=== PATIENT | female | born 1995 | race Two or more races ===

== ENCOUNTER 2020-03-10 13:53 | Inpatient (IN) ==
[2020-03-10] MEDS ORDERED: ONDANSETRON INJ 2 MG/ML 2 ML VIAL IV STA (14:20)
[2020-03-10] MEDS ORDERED: KETOROLAC TROMETHAMINE 15 MG/ML VIAL IV STA (14:20)
[2020-03-10] MEDS ORDERED: SODIUM CHLORIDE 0.9% 1000ML 1,000 ML IV ONE (14:20)
--- NOTE | 2020-03-10 14:24 | Emergency Department Note ---
Impression & Plan Right sided abdominal pain, Acute pyelonephritis, Fever, Leukocytosis ED Provider Note NAME: DELIA GARDINER AGE: 25 SEX: F : 1995 ARRIVES VIA: Ambulance INFORMANT: [Patient] ED PROVIDER(S): [Sav Galvez MD] CHIEF COMPLAINT: Abdominal pain HISTORY OF PRESENT ILLNESS: The patient is a 25-year-old female who presents with about 5 days of right- sided abdominal pain. The patient states that she has had 4 days of fever. She has vomited a few times, no diarrhea. The pain is mild in severity, it is constant and nonradiating. It is an ache. Nothing makes the pain better or worse. The patient has not had urinary complaints, vaginal discharge, she has not suffered trauma. She has not had any cough or congestion or shortness of breath. The patient did have outpatient coronavirus testing done as per [facility], the result is pending. She presents today because her pain is worsening. She has had no known coronavirus exposures. REVIEW OF SYSTEMS: See HPI for pertinent positives and negatives. A total of ten systems were reviewed and were otherwise negative. PMHx/PSHx: See Below SOCIAL HISTORY: See Below. PHYSICAL EXAM: GENERAL: Patient is in no acute distress. HEENT: No acute trauma, normocephalic atraumatic, mucous membranes moist, no nasal congestion, no scleral icterus. NECK: No stridor, no adenopathy, no meningismus, trachea is midline. LUNGS: Clear to auscultation bilaterally, no wheeze, no rhonchi, breath sounds equal. HEART: Mildly tachycardic. 2/6 systolic murmur. Regular rhythm. ABDOMEN: Soft, moderately tender in the right upper quadrant and mid right abdomen, bowel sounds positive, no hernias, no peritonitis. EXTREMITIES: No cyanosis or edema, full range of motion of all the joints without pain or difficulty, no signs for acute trauma. NEUROLOGIC: Oriented x 3, no acute motor or sensory deficits, no focal weakness. SKIN: No rash, no jaundice, no diaphoresis. DIFFERENTIAL DIAGNOSIS: Appendicitis, ovarian cyst, ovarian torsion, ectopic , TOA, PID, infections, diverticulitis, UTI, obstruction, mesenteric ischemia, aortic pathology, inflammatory bowel disease, renal colic, PUD, pancreatitis, biliary pathology, hernia, volvulus, constipation, as well as other pathologies. EMERGENCY DEPARTMENT COURSE/PROCEDURES: MEDICAL DECISION MAKING: There is a moderate leukocytosis at 16,000, this is consistent with infection. No concerning anemia. There is a normal platelet count. No significant electrolyte abnormality or kidney failure. No concerning liver enzyme elevation. No evidence for pancreatitis. testing returned negative. Urinalysis showed possible infection versus contamination. Gallbladder ultrasound did not show any evidence for gallstones or for acute cholecystitis. The appendix ultrasound could not visualize the appendix. Abdominal and pelvis CT shows evidence for pyelonephritis with a potential developing renal abscess. Cystitis was also seen. On my exam, the patient was tender about the mid right abdomen. She was not toxic. The patient received IV saline for hydration. She was given IV Zofran and IV Toradol. She received IV ceftriaxone as antibiotic coverage. The patient has a pyelonephritis with a potential developing renal abscess. Given her fever, given her white count, given the findings on CT, I do think a hospital stay with IV antibiotic therapy is warranted. I spoke to the patient and case management. The on-call hospitalist was consulted. Past Med/Surg History Medical History No significant past medical history Social History Feels Safe at Home: Yes Smoking Status: Never smoker Allergies Allergies Allergy/AdvReac Type Severity Reaction Status Date / Time No Known Allergies Allergy Verified 03/10/20 14:53 Home Meds Home Medications Medication Instructions Recorded Confirmed bupropion HCl 150 mg PO QAM 03/10/20 03/10/20 norethindrone-e.estradiol-iron 1 tab PO QAM 03/10/20 03/10/20 [11/07 (28)] venlafaxine 37.5 mg PO QAM 03/10/20 03/10/20 Results & Data (ED) Vital Signs Vital Signs - 24 hr 03/10/20 14:08 03/10/20 14:42 03/10/20 15:59 Temperature 37.6 C H Temperature Source Oral Pulse Rate 97 H Pulse Rate [Right Finger] 91 H Pulse Rhythm [Right Finger] Pulse Strength [Right Finger] Respiratory Rate 18 18 Respiratory Effort / Characteristics Non-Labored Spontaneous Non-Labored Respiratory Depth Normal Normal Respiratory Pattern Regular Blood Pressure 93/66 L Blood Pressure [Left Arm] 104/63 Blood Pressure Mean 75 Blood Pressure Mean [Left Arm] 76 Blood Pressure Position Lying Blood Pressure Position [Left Arm] Pulse Oximetry 98 100 Oxygen Delivery Method Room Air Room Air Sepsis Recent Fever Within 48 Hours No Sepsis New/Unexplained Change in Mental Status No Sepsis Action Taken by Nursing No Action Required 03/10/20 16:57 Temperature Temperature Source Pulse Rate Pulse Rate [Right Finger] 89 Pulse Rhythm [Right Finger] Regular Pulse Strength [Right Finger] Normal Respiratory Rate 18 Respiratory Effort / Characteristics Non-Labored Spontaneous Respiratory Depth Normal Respiratory Pattern Regular Blood Pressure Blood Pressure [Left Arm] 99/74 L Blood Pressure Mean Blood Pressure Mean [Left Arm] 82 Blood Pressure Position Blood Pressure Position [Left Arm] Sitting Pulse Oximetry 100 Oxygen Delivery Method Room Air Sepsis Recent Fever Within 48 Hours Sepsis New/Unexplained Change in Mental Status Sepsis Action Taken by [place] Medications Current Medication List: was personally reviewed by me Laboratory Data Attestation: I reviewed the patient's lab results. Result diagrams: 03/10/20 14:42 03/10/20 14:42 Lab Results 03/10/20 03/10/20 03/10/20 Range/Units 14:23 14:42 14:42 WBC 16.42 H (4.8-10.8) K/uL RBC 4.17 L (4.2-5.4) M/uL Hgb 11.8 L (12.0-16.0) g/dL Hct 36.3 L (37-47) % MCV 87.1 (80-100) fL MCH 28.3 (25-34) pg MCHC 32.5 (32-36) g/dL RDW Std Deviation 43.2 (36.4-46.3) fL RDW Coeff of Dave 13.5 (11.5-14.5) % Plt Count 147 (130-400) K/uL MPV 11.0 H (7.4-10.4) fL Immature Gran % (Auto) 0.4 % Neut % (Auto) 83.8 % Lymph % (Auto) 6.0 % Garza % (Auto) 9.5 % Eos % (Auto) 0.1 % Baso % (Auto) 0.2 % Immature Gran # (Auto) 0.06 H (0.00-0.02) K/uL Neut # (Auto) 13.77 H (1.4-6.5) K/uL Lymph # (Auto) 0.98 L (1.2-3.4) K/uL Garza # (Auto) 1.56 H (0.11-0.59) K/uL Eos # (Auto) 0.02 (0-0.5) K/uL Baso # (Auto) 0.03 (0-0.2) K/uL Sodium 137 (136-145) mmol/L Potassium 3.9 (3.5-5.1) mmol/L Chloride 104 (98-107) mmol/L Carbon Dioxide 24 (21-32) mmol/L Anion Gap 9.0 (3-11) BUN 7 (7-18) mg/dl Creatinine 1.05 (0.6-1.2) mg/dl Est Cr Clr Drug Dosing 60.7 ml/min Est GFR ( Amer) 84.3 Est GFR (Non-Af Amer) 72.7 BUN/Creatinine Ratio 6.4 L (10-20) Glucose 116 H (70-99) mg/dl Calcium 8.8 (8.5-10.1) mg/dl Total Bilirubin 0.3 (0.2-1) mg/dl AST 15 (15-37) U/L ALT 19 (12-78) U/L Alkaline Phosphatase 88 (45-117) U/L Total Protein 7.6 (6.4-8.2) gm/dl Albumin 2.9 L (3.4-5.0) gm/dl Globulin 4.7 H (2.5-4.0) gm/dl Albumin/Globulin Ratio 0.6 L (0.9-2) Lipase 78 (73-393) U/L HCG, Qual (Negative) Urine Color Yellow Urine Appearance Clear (Clear) Urine pH 6.0 (4.5-7.5) Ur Specific [place] 1.007 (1.000-1.030) Urine Protein 1+ H (Negative) Urine Glucose (UA) Negative (Negative) Urine Ketones Negative (Negative) Urine Blood Trace H (Negative) Urine Nitrite Negative (Negative) Urine Bilirubin Negative (Negative) Urine Urobilinogen Negative (Negative) Ur Leukocyte Esterase 1+ H (Negative) Urine WBC (Auto) 10-30 H (0-5) /hpf Urine RBC (Auto) 0-4 (0-4) /hpf U Hyaline Cast (Auto) 0 (0-5) /lpf U Epithel Cells (Auto) >30 H (0-5) /lpf Urine Bacteria (Auto) 1+ H (Negative) Ur Renal Epithelial Cell Not Reportable 03/10/20 Range/Units 14:42 WBC (4.8-10.8) K/uL RBC (4.2-5.4) M/uL Hgb (12.0-16.0) g/dL Hct (37-47) % MCV (80-100) fL MCH (25-34) pg MCHC (32-36) g/dL RDW Std Deviation (36.4-46.3) fL RDW Coeff of Dave (11.5-14.5) % Plt Count (130-400) K/uL MPV (7.4-10.4) fL Immature Gran % (Auto) % Neut % (Auto) % Lymph % (Auto) % Garza % (Auto) % Eos % (Auto) % Baso % (Auto) % Immature Gran # (Auto) (0.00-0.02) K/uL Neut # (Auto) (1.4-6.5) K/uL Lymph # (Auto) (1.2-3.4) K/uL Garza # (Auto) (0.11-0.59) K/uL Eos # (Auto) (0-0.5) K/uL Baso # (Auto) (0-0.2) K/uL Sodium (136-145) mmol/L Potassium (3.5-5.1) mmol/L Chloride (98-107) mmol/L Carbon Dioxide (21-32) mmol/L Anion Gap (3-11) BUN (7-18) mg/dl Creatinine (0.6-1.2) mg/dl Est Cr Clr Drug Dosing ml/min Est GFR ( Amer) Est GFR (Non-Af Amer) BUN/Creatinine Ratio (10-20) Glucose (70-99) mg/dl Calcium (8.5-10.1) mg/dl Total Bilirubin (0.2-1) mg/dl AST (15-37) U/L ALT (12-78) U/L Alkaline Phosphatase (45-117) U/L Total Protein (6.4-8.2) gm/dl Albumin (3.4-5.0) gm/dl Globulin (2.5-4.0) gm/dl Albumin/Globulin Ratio (0.9-2) Lipase (73-393) U/L HCG, Qual Negative (Negative) Urine Color Urine Appearance (Clear) Urine pH (4.5-7.5) Ur Specific [place] (1.000-1.030) Urine Protein (Negative) Urine Glucose (UA) (Negative) Urine Ketones (Negative) Urine Blood (Negative) Urine Nitrite (Negative) Urine Bilirubin (Negative) Urine Urobilinogen (Negative) Ur Leukocyte Esterase (Negative) Urine WBC (Auto) (0-5) /hpf Urine RBC (Auto) (0-4) /hpf U Hyaline Cast (Auto) (0-5) /lpf U Epithel Cells (Auto) (0-5) /lpf Urine Bacteria (Auto) (Negative) Ur Renal Epithelial Cell Administered Medications Ioversol (Optiray 320 100ml) 94 ml IV ONCE PRN PRN Reason: Interaction Checking Stop: 03/14/20 16:31 Last Admin: 03/10/20 16:33 Dose: 94 ml Documented by: [id number] Discontinued Medications Sodium Chloride (Nss 1000ml) 1,000 mls @ 999 mls/hr IV .Q1H1M ONE Stop: 03/10/20 15:20 Last Infusion: 03/10/20 16:00 Dose: 0 mls/hr Documented by: [id number] Admin: 03/10/20 14:47 Dose: 999 mls/hr Documented by: [id number] Ceftriaxone Sodium (Rocephin) 1,000 mg in 50 mls @ 100 mls/hr IV NOW STA Stop: 03/10/20 17:12 Last Admin: 03/10/20 16:53 Dose: 100 mls/hr Documented by: [id number] Ketorolac Tromethamine (Toradol) 15 mg IV NOW STA Stop: 03/10/20 14:21 Last Admin: 03/10/20 14:47 Dose: 15 mg Documented by: [id number] Ondansetron HCl (Zofran) 4 mg IV NOW STA Stop: 03/10/20 14:21 Last Admin: 03/10/20 14:47 Dose: 4 mg Documented by: [id number] Imaging Data Radiologist's Impression: XR chest 1V portable HISTORY: Right upper quadrant pain. Nausea. Vomiting. Fever. COMPARISON: None. FINDINGS: The lungs are clear. No pleural effusions. No pneumothorax. The cardiac silhouette is borderline enlarged. This may be accentuated by the low lung volumes and portable technique. IMPRESSION: Borderline cardiomegaly which may be accentuated by the low lung volumes and portable technique. Otherwise, no acute process within the chest. ABDOMINAL ULTRASOUND, RIGHT UPPER QUADRANT HISTORY: ruq pain and fever. COMPARISON: None. FINDINGS: Pancreas: The pancreas demonstrates a normal echotexture. Liver: Unremarkable. Gallbladder: The gallbladder wall is at the upper limits of normal measuring 2.9 mm. No gallstones. Negative sonographic Palma sign. CBD: 3 mm. Right kidney: No hydronephrosis. IMPRESSION: No significant abnormality identified within the right upper quadrant. APPENDIX ULTRASOUND HISTORY: right sided abdominal pain, fever COMPARISON: None. FINDINGS: Transabdominal scanning of the right lower quadrant was performed. The appendix was not identified. There are no fluid collections or masses within the right lower quadrant. Minimal free fluid seen within the right lower quadrant. This may be physiologic in a female. IMPRESSION: The appendix was not identified. Minimal fluid seen within the right lower quadrant which may be physiologic. ABDOMEN AND PELVIS CT WITH IV CONTRAST CT DOSE: 334.91 mGycm HISTORY: Right-sided abdominal pain. poss appy, fever, pain TECHNIQUE: Multiaxial CT images of the abdomen and pelvis were performed following the use of intravenous contrast. A dose lowering technique was utilized adhering to the principles of ALARA. COMPARISON STUDY: None. FINDINGS: The lung bases are clear. No pneumoperitoneum. No pneumatosis. No fractures within the visualized osseous structures. The liver, gallbladder, spleen, adrenal glands, left kidney are unremarkable. Heterogeneous enhancement within the right kidney with mild right perinephric fat stranding. There is also more focal hypodensity within the right kidney measuring 1.4 cm. This is best seen image 168. Normal pancreas. No retroperitoneal lymphadenopathy. Normal caliber abdominal aorta. The bladder wall is thickened. No hydronephrosis. The uterus and bilateral adnexa are unremarkable. No bowel wall thickening or obstruction. Normal appendix. IMPRESSION: 1. Heterogeneous enhancement within the right kidney with perinephric fat stran ding. This is consistent with a pyelonephritis. There is a focal 1.4 cm hypodense area within the right kidney which may represent a developing renal abscess. 2. Normal appendix. 3. Bladder wall thickening consistent with a cystitis. Blood Pressure Blood Pressure Findings: Low blood pressure Blood Pressure Disposition: further management by hospitalist Discharge Plan Visit Data Chief Complaint: Abdominal Pain Other Complaint: Illness ED Provider: Sav Galvez Discharge Problem: Right sided abdominal pain, Acute pyelonephritis, Fever, Leukocytosis Patient Disposition: Being Evaluated by Hospitalist Condition: Good Forms Stand Alone Forms: [facility] Prescriptions Prescriptions: No Action bupropion HCl 150 mg tablet sustained-release 12 hr 150 mg PO QAM RF: 0 venlafaxine 37.5 mg capsule,extended release 24hr 37.5 mg PO QAM RF: 0 norethindrone-e.estradiol-iron [11/07 (28)] 1 mg-20 mcg (21)/75 mg (7) tablet 1 tab PO QAM RF: 0 Referrals Referrals: [facility] [Primary Care Provider] - Discharge Problem: Fever Qualifiers: Fever type: unspecified Qualified Code(s): R50.9 - Fever, unspecified Leukocytosis Qualifiers: Leukocytosis type: unspecified Qualified Code(s): D72.829 - Elevated white blood cell count, unspecified
[2020-03-10 14:44] LABS: Appearance Urine Clear (Clear); Bilirubin Urine Negative (Negative); Blood Urine Trace (Negative); Color Urine Yellow; Glucose Urine UA Negative (Negative); Ketones Urine Negative (Negative); Leukocyte Esterase Urine 1+ (Negative); Nitrite Urine Negative (Negative); Protein Urine 1+ (Negative); Specific Gravity Urine 1.007 (1.000-1.030); Urobilinogen Urine Negative (Negative)
[2020-03-10 14:52] LABS: Hematocrit (blood only) 36.3 % (37-47); Hemoglobin 11.8 g/dL (12.0-16.0); Mean Corpuscular Hemoglobin 28.3 pg (25-34); Mean Corpuscular Hgb Conc 32.5 g/dL (32-36); Mean Corpuscular Volume 87.1 fL (80-100); Platelet Count 147 K/uL (130-400); RDW Coefficient of Variation 13.5 % (11.5-14.5); RDW Standard Deviation 43.2 fL (36.4-46.3); Red Blood Count 4.17 M/uL (4.2-5.4); White Blood Count 16.42 K/uL (4.8-10.8)
[2020-03-10 14:53] LABS: Cast Urine Automated 0 /lpf (0-5); Epithelial Cell Urine Auto >30 /lpf (0-5); RBC Urine Automated 0-4 /hpf (0-4)
[2020-03-10 14:54] LABS: Bacteria Urine Automated 1+ (Negative)
[2020-03-10 15:17] LABS: Albumin Level 2.9 gm/dl (3.4-5.0); BUN Creatinine Ratio 6.4 (10-20); Calcium 8.8 mg/dl (8.5-10.1); Creatinine Clr Calc Pharmacy 60.7 ml/min; Est GFR (African American) 84.3; Est GFR (Non-African American) 72.7; Potassium 3.9 mmol/L (3.5-5.1)
[2020-03-10 15:18] LABS: Basophils # (auto) 0.03 K/uL (0-0.2); Basophils % (auto) 0.2 %; Eosinophils # (auto) 0.02 K/uL (0-0.5); Eosinophils % (auto) 0.1 %; Immature Granulocytes # (auto) 0.06 K/uL (0.00-0.02); Immature Granulocytes % (auto) 0.4 %; Lymphocytes # (auto) 0.98 K/uL (1.2-3.4); Monocytes # (auto) 1.56 K/uL (0.11-0.59); Monocytes % (auto) 9.5 %; Neutrophils # (auto) 13.77 K/uL (1.4-6.5); Neutrophils % (auto) 83.8 %; Pregnancy Test, Serum Negative (Negative)
[2020-03-10 15:20] LABS: Albumin Globulin Ratio 0.6 (0.9-2); Bilirubin,Total 0.3 mg/dl (0.2-1); Globulin 4.7 gm/dl (2.5-4.0); Total Protein 7.6 gm/dl (6.4-8.2)
--- NOTE | 2020-03-10 15:27 | XRay Report ---
XR chest 1V portable HISTORY: Right upper quadrant pain. Nausea. Vomiting. Fever. COMPARISON: None. FINDINGS: The lungs are clear. No pleural effusions. No pneumothorax. The cardiac silhouette is borde rline enlarged. This may be accentuated by the low lung volumes and portable technique. IMPRESSION: Borderline cardiomegaly which may be accentuated by the low lung volumes and portable technique. Othe rwise, no acute process within the chest. ACT 112: Negative or not required by law. Electronically signed by: Lg Dias M.D. 03/10/2020 3:26 PM
--- NOTE | 2020-03-10 16:01 | Ultrasound Report ---
APPENDIX ULTRASOUND HISTORY: right sided abdominal pain, fever COMPARISON: None. FINDINGS: Transabdominal scanning of the right lower quadrant was performed. The appendix was not identified. T here are no fluid collections or masses within the right lower quadrant. Minimal free fluid seen with in the right lower quadrant. This may be physiologic in a female. IMPRESSION: The appendix was not identified. Minimal fluid seen within the right lower quadrant which may be phys iologic. ACT 112: Negative or not required by law. Electronically signed by: Lg Dias M.D. 03/10/2020 4:00 PM
--- NOTE | 2020-03-10 16:03 | Ultrasound Report ---
ABDOMINAL ULTRASOUND, RIGHT UPPER QUADRANT HISTORY: ruq pain and fever. COMPARISON: None. FINDINGS: Pancreas: The pancreas demonstrates a normal echotexture. Liver: Unremarkable. Gallbladder: The gallbladder wall is at the upper limits of normal measuring 2.9 mm. No gallstones. N egative sonographic Palma sign. CBD: 3 mm. Right kidney: No hydronephrosis. IMPRESSION: No significant abnormality identified within the right upper quadrant. ACT 112: Negative or not required by law. Electronically signed by: Lg Dias M.D. 03/10/2020 4:02 PM
[2020-03-10] MEDS ORDERED: IOVERSOL 100ml IV PRN (16:32)
[2020-03-10] MEDS ORDERED: cefTRIAXone SODIUM 1,000 MG/50 ML BAG IV STA (16:43)
--- NOTE | 2020-03-10 17:02 | CT Scan Report ---
ABDOMEN AND PELVIS CT WITH IV CONTRAST CT DOSE: 334.91 mGycm HISTORY: Right-sided abdominal pain. poss appy, fever, pain TECHNIQUE: Multiaxial CT images of the abdomen and pelvis were performed following the use of intrave nous contrast. A dose lowering technique was utilized adhering to the principles of ALARA. COMPARISON STUDY: None. FINDINGS: The lung bases are clear. No pneumoperitoneum. No pneumatosis. No fractures within the visu alized osseous structures. The liver, gallbladder, spleen, adrenal glands, left kidney are unremarkab le. Heterogeneous enhancement within the right kidney with mild right perinephric fat stranding. Ther e is also more focal hypodensity within the right kidney measuring 1.4 cm. This is best seen image 16 8. Normal pancreas. No retroperitoneal lymphadenopathy. Normal caliber abdominal aorta. The bladder w all is thickened. No hydronephrosis. The uterus and bilateral adnexa are unremarkable. No bowel wall thickening or obstruction. Normal appendix. IMPRESSION: 1. Heterogeneous enhancement within the right kidney with perinephric fat stranding. This is consiste nt with a pyelonephritis. There is a focal 1.4 cm hypodense area within the right kidney which may re present a developing renal abscess. 2. Normal appendix. 3. Bladder wall thickening consistent with a cystitis. ACT 112: Negative or not required by law. Electronically signed by: Lg Dias M.D. 03/10/2020 5:01 PM
[2020-03-10] MEDS ORDERED: SODIUM CHLORIDE 0.9% 1000ML 500 ML IV ONE (17:24)
--- NOTE | 2020-03-10 17:47 | History & Physical Report ---
Date of Service March 10, 2020 Assessment & Plan (1) Acute pyelonephritis: As noted on CTAP GB and appendix noted as WNL on US Started on ceftriaxone in the ED, will continue Elevated WBC, febrile UA + leuk est, neg nitrites with cx pending Lipase WNL Preg test neg Cr WNL Pt with outpt COVID testing pending. Does not need COVID precautions given above (2) Anxiety: continue wellbutrin Will hold effexor as pt's outpt plan had been to stop this medication. It was restarted out of concern for possible withdrawal. (3) Depression: continue wellbutrin Will hold effexor as pt's outpt plan had been to stop this medication. It was restarted out of concern for possible withdrawal. (4) Uses control: Advised that abx can cause efficacy issues with OCP and she should use back up control if sexually active (5) DVT prophylaxis: Ambulation and SCDs History of Present Illness [facility] 25 [facility]/o fevers, abd pain, n/v. Pt states she started to have fevers and R sided abd pain going to her back over the last several days. It started with abd pain on Thursday. She took an OTC and it was still present, but better. On Thursday she started to have fevers. She took ibuprofen and fever resolved. On , she noted another fever. She called [facility] and they sent her for COVID testing. She continued to have fevers and then noted that her abd pain was moving to her back. She tooks TUMS and tried to go to bed, however she developed n/v and more fevers. She called [facility] and was directed to the ED for concerns regarding her appendix. Pt denies hx of UTI or pyelo. She has had no vonnie urinary sx, but states that yesterday she stared to feel "weird" when she would urinate. No pain, urgency, or frequency, but she cannot describe the "weird" feeling otherwise. Pt was given IVF, abx in the ED and states she still feels unwell, but better than [employer]. Pt states that she was recently taken off her effexor as part of her ongoing anx/dep tx plan. She states it was restarted a few days ago as it was thought that maybe her fevers were sx of withdrawal. Allergies Allergy/AdvReac Type Severity Reaction Status Date / Time No Known Allergies Allergy Verified 03/10/20 14:53 Home Medications Home Medications Medication Instructions Recorded Confirmed Type bupropion HCl 150 mg PO QAM 03/10/20 03/10/20 History norethindrone-e.estradiol-iron 1 tab PO QAM 03/10/20 03/10/20 History [11/07 (28)] venlafaxine 37.5 mg PO QAM 03/10/20 03/10/20 History Past Med/Surg History Medical History No significant past medical history Family History (Updated 03/10/20 @ 17:41 by Mandy Baird DO) Denies family history of Myocardial infarction Social History (Updated 03/10/20 @ 17:42 by Mandy Baird DO) Feels Safe at Home: Yes Smoking Status: Never smoker Hx Alcohol Use: Yes Alcohol Intake Frequency Comment: socially, twice a month Hx Substance Use: No Review of Systems Review of Systems: Pertinent positives and negatives reviewed in HPI--all o thers negative Physical Exam Constitutional: WD/WN, vitals as above + ill appearing Eyes: normal visual lemus by confrontation and + anicteric sclerae Neck: normal visual inspection and trachea midline Respiratory: normal respiratory effort, lungs clear to auscultation Cardiovascular: Rate/Rhythm: regular rhythm and + tachycardic Gastrointestinal (Abdomen): Inspection/Auscultation: abdomen not distended Percussion/Palpation: abdomen soft; abdomen nontender Musculoskeletal: Head/Neck/Chest: normocephalic and head atraumatic negative for edema, peripheral pulses intact Skin: no rashes, warm and dry Neurologic: awake; not confused Speech / Cognition: normal speech Psychiatric: A+Ox3, euthymic affect Results & Data Results & Data ([facility]) Vital Signs (Past 12 Hours) Vital Signs Temp Pulse Pulse Resp BP BP Pulse Ox 03/10/20 16:57 89 18 99/74 L 100 03/10/20 15:59 91 H 18 104/63 100 03/10/20 14:08 37.6 C H 97 H 18 93/66 L 98 Diagnostic Findings CTAP: noted for R sided pyelo and probably cystitis GB US: neg for acute Appendix US: neg for acute Code Status & VTE Plan VTE Prophylaxis Plan VTE Prophylaxis will be ordered: Yes PG Care Time/CCT Total # of Minutes Spent Total Time Spent with Patient: Total time spent is greater than 50% in coordination of care (as documented) at patient's floor/unit and/or counseling patient: Coding Level of Care Code 25288 Initial Inpt Care Lvl 3 Diagnoses Acute pyelonephritis N10 Anxiety F41.9 Depression F32.9 Uses control Z78.9 DVT prophylaxis Z29.9
[2020-03-10] MEDS ORDERED: ACETAMINOPHEN 325 MG TAB ONE (19:04)
[2020-03-10] MEDS ORDERED: ONDANSETRON INJ 2 MG/ML 2 ML VIAL IV PRN (19:26)
[2020-03-10] MEDS ORDERED: MAGNESIUM HYDROXIDE SUSP 30 ML UDC PO PRN (19:26)
[2020-03-10] MEDS: SODIUM CHLORIDE 0.45 % 1,000 ML IV SCH (19:46)
[2020-03-10] MEDS: ACETAMINOPHEN 325 MG TAB PO PRN (23:36)
[2020-03-11] MEDS: ACETAMINOPHEN 325 MG TAB PO PRN ×2 (03:45→21:54)
[2020-03-11 07:12] LABS: Basophils # (auto) 0.01 K/uL (0-0.2); Basophils % (auto) 0.1 %; Eosinophils # (auto) 0.04 K/uL (0-0.5); Eosinophils % (auto) 0.3 %; Hemoglobin 10.4 g/dL (12.0-16.0); Immature Granulocytes # (auto) 0.05 K/uL (0.00-0.02); Immature Granulocytes % (auto) 0.4 %; Lymphocytes # (auto) 0.74 K/uL (1.2-3.4); Lymphocytes % (auto) 5.3 %; Mean Corpuscular Hemoglobin 28.4 pg (25-34); Mean Corpuscular Hgb Conc 32.5 g/dL (32-36); Mean Corpuscular Volume 87.4 fL (80-100); Mean Platelet Volume 11.3 fL (7.4-10.4); Monocytes # (auto) 1.36 K/uL (0.11-0.59); Monocytes % (auto) 9.7 %; Neutrophils # (auto) 11.77 K/uL (1.4-6.5); Neutrophils % (auto) 84.2 %; Platelet Count 143 K/uL (130-400); RDW Coefficient of Variation 13.8 % (11.5-14.5); RDW Standard Deviation 44.7 fL (36.4-46.3); Red Blood Count 3.66 M/uL (4.2-5.4); White Blood Count 13.97 K/uL (4.8-10.8)
[2020-03-11 07:42] LABS: BUN Creatinine Ratio 7.8 (10-20); Calcium 8.3 mg/dl (8.5-10.1); Creatinine Clr Calc Pharmacy 70.1 ml/min; Est GFR (African American) 89.4; Est GFR (Non-African American) 77.2; Potassium 4.5 mmol/L (3.5-5.1)
[2020-03-11] MEDS: SODIUM CHLORIDE 0.45 % 1,000 ML IV SCH ×2 (08:34→17:37)
[2020-03-11] MEDS: CONTRACEPTIVE PO SCH (08:34)
[2020-03-11] MEDS: BuPROPion SR 150 MG TABCR PO SCH (08:34)
[2020-03-11] MEDS: JUNEL FE PO SCH (08:34)
[2020-03-11] MEDS ORDERED: KETOROLAC TROMETHAMINE 15 MG/ML VIAL IV ONE (09:38)
--- NOTE | 2020-03-11 09:51 | Urology Consultation ---
Date of Consultation March 11, 2020 Assessment & Plan (1) Right sided abdominal pain: Right sided pyelonephritis. Possible renal abcess 1.4cm. Cont broad spectrum abx. Follow fever curves. Labs. F/U cultures. If sxs persist, consider reimaging to eval abscess. Given the small size, I don't think this will need to be drained, however, if sxs don't improve, that may be an option. (2) Acute pyelonephritis: History of Present Illness Attending Physician: 25 y/o Female presented to the ED with a hx of fevers, abd pain, nausea, and vomitting. She states that her abd pain began last Thursday. It then progressed to fevers. She took Motrin and the fever improved, but then returned a day later along with persistent abd pain. Nausea and vomitting then developed with the fevers. She denied any sig urinary complaints. A few days prior she had a strange feeling in her bladder. No hematuria. No dysuria. Min urge and freq. No nocturia. She normally voids with a good stream and feels like she empties. No hx of RUTIs. No hx of pyelo. No hx of vesicoureteral reflux. No hx of urologic surgery. Upon arrival to ED a CT scan was performed which showed findings consistent with right hydro and possible 1.4cm right renal abscess. No stones. No hydro. She was then started on IV abx and admitted for further mgmt. Allergies Allergy/AdvReac Type Severity Reaction Status Date / Time No Known Allergies Allergy Verified 03/10/20 14:53 Home Medications Home Medications Medication Instructions Recorded Confirmed Type bupropion HCl 150 mg PO QAM 03/10/20 03/10/20 History norethindrone-e.estradiol-iron 1 tab PO QAM 03/10/20 03/10/20 History [11/07 (28)] venlafaxine 37.5 mg PO QAM 03/10/20 03/10/20 History Patient History Medical History No significant past medical history Family History (Updated 03/10/20 @ 17:41 by Mandy Baird DO) Denies family history of Myocardial infarction Social History (Updated 03/10/20 @ 17:42 by Mandy Baird DO) Preferred Language: Hungarian Communication Ability: Effective Medical Records Field Technician Required: No Beliefs That Will Affect Care: None Current Living Situation: Other Current Living Situation Comment: apartment with roommates Other Information That Helps Us Care for You: No Feels Safe at Home: Yes Safety Concerns: Feels Safe At This Time Smoking Status: Never smoker Hx Alcohol Use: Yes Alcohol type: beer and wine Alcohol Intake Frequency Comment: socially, twice a month Hx Substance Use: No Review of Systems Review of Systems: All systems reviewed & are unremarkable except as noted in HPI & below Physical Exam Constitutional: WD/WN, vitals as above Neck: trachea midline, no thyromegaly Respiratory: normal respiratory effort, lungs clear to auscultation Cardiovascular: RRR, no murmur, no edema Gastrointestinal (Abdomen): normal bowel sounds, soft, nontender, no hepatosplenomegaly Skin: no rashes, warm and dry Psychiatric: A+Ox3, euthymic affect Lymphatic: no cervical or axillary lymphadenopathy Results & Data Vital Signs (Past 12 Hours) Vital Signs Temp Pulse Pulse Resp BP Pulse Ox 03/11/20 07:26 37.1 C 100 H 16 86/51 L 98 03/11/20 03:23 37.7 C H 94 H 17 93/60 L 96 03/11/20 01:36 91 H 03/10/20 23:59 37.2 C 88 17 99/68 L 99
--- NOTE | 2020-03-11 11:44 | Family Medicine Progress Note ---
Date of Service March 11, 2020 Assessment & Plan (1) Acute pyelonephritis: Pyelonephritis with questionable bilateral small abscess Leukocytosis is slightly improved this morning Renal function is preserved She is mildly hypotensive although I suspect this is not far from her baseline Will increase her IV fluids given her decreased p.o. intake Continue Zofran PRN nausea We will give her a dose of Toradol; could consider low doses of morphine should her blood pressure allow Urology consult pending Continue ceftriaxone Urine culture pending Of note the patient also has a pending test for COVID-19 which was done as an outpatient; I do not suspect that she has COVID-19 although we will follow-up on test results next week for completeness. (2) Anxiety: continue wellbutrin There was some question as an outpatient if she was having withdrawal from Effexor; in talking to her today she was appropriately weaned over 1 month, and she is still on an SNRI so I suspect her symptoms were secondary to the developing infection. (3) Depression: See above (4) Uses control: test negative upon admission Advised that abx can cause efficacy issues with OCP and she should use back up control if sexually active (5) DVT prophylaxis: Ambulation and SCDs Admission and Anticipated Discharge Date Admission Date: March 10, 2020 Subjective 25-year-old female admitted yesterday with right-sided pyelonephritis. This morning when I saw her she is complaining of some nausea and she was medicated with Zofran 4 mg IV. She complains of continued pain in the right costovertebral angle, right flank, and to some extent the right lower abdominal quadrant. She denies any dysuria. She did have difficulty sleeping overnight due to getting a comfortable position. Review of Systems Constitutional: + fever Eyes: no problem reported Ear, Nose, Mouth, Throat: no pain with swallowing Respiratory: no cough, no change in sputum and no dyspnea Cardiovascular: no dyspnea at rest Gastrointestinal: + abdominal pain; no bloating and no nausea Genitourinary: no dysuria and no urinary hesitancy Musculoskeletal: + back pain Integumentary: no rash Psychiatric: + anxiety (Mild); no depression Physical Exam Constitutional: WD/WN, vitals as above Eyes: PERRL, conjunctivae normal, anicteric sclerae ENMT: external ear and nose normal, oropharynx normal Neck: trachea midline, no thyromegaly Respiratory: normal respiratory effort; no labored breathing and no retractions Cardiovascular: Rate/Rhythm: regular rate and regular rhythm Gastrointestinal (Abdomen): Location of her discomfort is the right CVA angle, right flank, and right lower abdominal quadrant. There is no rebound or guarding appreciated. Musculoskeletal: no cyanosis or clubbing, extremities motor strength 5/5 Psychiatric: A+Ox3, euthymic affect Results & Data ([facility]) Vital Signs (Past 12 Hours) Vital Signs Temp Pulse Pulse Resp BP Pulse Ox 03/11/20 11:32 38.1 C H 95 H 16 95/60 L 96 03/11/20 07:26 37.1 C 100 H 16 86/51 L 98 03/11/20 03:23 37.7 C H 94 H 17 93/60 L 96 03/11/20 01:36 91 H 03/10/20 23:59 37.2 C 88 17 99/68 L 99
[2020-03-11] MEDS ORDERED: ACETAMINOPHEN 325 MG TAB PO PRN (15:18)
[2020-03-11] MEDS: cefTRIAXone SODIUM 1,000 MG in DEXTROSE 5% 50 ML IV SCH (15:43)
[2020-03-11] MEDS: KETOROLAC TROMETHAMINE 15 MG/ML VIAL IV PRN ×2 (15:46→21:49)
[2020-03-12] MEDS: SODIUM CHLORIDE 0.45 % 1,000 ML IV SCH ×2 (03:15→10:14)
[2020-03-12 07:04] LABS: Basophils # (auto) 0.01 K/uL (0-0.2); Basophils % (auto) 0.1 %; Eosinophils # (auto) 0.15 K/uL (0-0.5); Eosinophils % (auto) 1.5 %; Hematocrit (blood only) 33.2 % (37-47); Hemoglobin 10.8 g/dL (12.0-16.0); Immature Granulocytes # (auto) 0.04 K/uL (0.00-0.02); Immature Granulocytes % (auto) 0.4 %; Lymphocytes # (auto) 1.24 K/uL (1.2-3.4); Lymphocytes % (auto) 12.4 %; Mean Corpuscular Hemoglobin 28.1 pg (25-34); Mean Corpuscular Hgb Conc 32.5 g/dL (32-36); Mean Corpuscular Volume 86.5 fL (80-100); Monocytes # (auto) 0.81 K/uL (0.11-0.59); Monocytes % (auto) 8.1 %; Neutrophils # (auto) 7.79 K/uL (1.4-6.5); Neutrophils % (auto) 77.5 %; Platelet Count 179 K/uL (130-400); RDW Coefficient of Variation 14.2 % (11.5-14.5); RDW Standard Deviation 44.6 fL (36.4-46.3); Red Blood Count 3.84 M/uL (4.2-5.4); White Blood Count 10.04 K/uL (4.8-10.8)
[2020-03-12 07:35] LABS: BUN Creatinine Ratio 7.4 (10-20); Calcium 8.2 mg/dl (8.5-10.1); Creatinine Clr Calc Pharmacy 71.8 ml/min; Est GFR (African American) 91.6; Est GFR (Non-African American) 79.1; Potassium 4.2 mmol/L (3.5-5.1)
[2020-03-12] MEDS: KETOROLAC TROMETHAMINE 15 MG/ML VIAL IV PRN (07:55)
[2020-03-12] MEDS: CONTRACEPTIVE PO SCH (07:58)
[2020-03-12] MEDS: JUNEL FE PO SCH (07:58)
[2020-03-12] MEDS: BuPROPion SR 150 MG TABCR PO SCH (07:58)
[2020-03-12] MEDS: cefTRIAXone SODIUM 1,000 MG in DEXTROSE 5% 50 ML IV SCH (15:38)
[2020-03-12] MEDS: ACETAMINOPHEN 325 MG TAB PO PRN (15:38)
--- NOTE | 2020-03-12 18:00 | Discharge Summary ---
Date of Service March 12, 2020 Admission HPI Per Admitting Provider 25 y/o F c/o fevers, abd pain, n/v. Pt states she started to have fevers and R sided abd pain going to her back over the last several days. It started with abd pain on Thursday. She took an OTC and it was still present, but better. On Thursday she started to have fevers. She took ibuprofen and fever resolved. On , she noted another fever. She called [facility] and they sent her for COVID testing. She continued to have fevers and then noted that her abd pain was moving to her back. She tooks TUMS and tried to go to bed, however she developed n/v and more fevers. She called [facility] and was directed to the ED for concerns regarding her appendix. Pt denies hx of UTI or pyelo. She has had no vonnie urinary sx, but states that yesterday she stared to feel "weird" when she would urinate. No pain, urgency, or frequency, but she cannot describe the "weird" feeling otherwise. Pt was given IVF, abx in the ED and states she still feels unwell, but better than ACCESS RN. Pt states that she was recently taken off her effexor as part of her ongoing anx/dep tx plan. She states it was restarted a few days ago as it was thought that maybe her fevers were sx of withdrawal. Principal Diagnosis Pyelonephritis with small (1.4cm) renal abscess Discharge Exam Constitutional WD/WN, vitals as above Eyes EOM intact bilaterally; no conjunctival abnormality ENMT external ear and nose normal, oropharynx normal Neck trachea midline, no thyromegaly normal visual inspection Respiratory normal respiratory effort, lungs clear to auscultation no respiratory distress Cardiovascular RRR, no murmur, no edema Gastrointestinal (Abdomen) Inspection/Auscultation: abdomen normal to inspection; abdomen not distended Musculoskeletal no cyanosis or clubbing, extremities motor strength 5/5 Skin no rashes, warm and dry Neurologic moves all extremities and awake Psychiatric Orientation: alert, oriented to person and cooperative Discharge Data Allergies Allergy/AdvReac Type Severity Reaction Status Date / Time No Known Allergies Allergy Verified 03/10/20 14:53 Consultations 03/10/20 17:14 ED Decision to Admit Stat 03/11/20 08:21 Consult Urology Routine Ordered Studies 03/10/20 14:20 US appendix Stat US gallbladder Stat 03/10/20 16:08 CT abd pelvis IV con only Stat Hospital Course (1) Acute pyelonephritis: Pyelonephritis with focal 1.4 cm renal abscess. - Seen by urology with hope that this will resolve with only antibiotics. This is in agreement with UpToDate recommendations. - Leukocytosis improving; fever improving; right flank pain improving, appetite improving. I was on the fence about discharge, but she preferred to go home. I did discuss red flags symptoms to return to care and discussed that her renal abscess could potentially get bigger requiring drainage. She was understanding of this and still wanted to go home which I did not think was inappropriate given resolved leukocytosis, resolving fevers, and overall symptomatic improvement. - Urine cx grew acevedo-sensitive E. coli -> Two week course of ciprofloxacin. Discussed the importance of seeing her PCP next week while still on abx to ensu re infection is resolving. Discussed when to take the next dose of Cipro and the importance of finishing her course. QTc was 430 on discharge, so Cipro is a safe choice. (2) Anxiety: There was some question as an outpatient if she was having withdrawal from Effexor; in talking to her today she was appropriately weaned over 1 month, and she is still on an SNRI so I suspect her symptoms were secondary to the developing infection. - Continue wellbutrin (3) Depression: See above (4) Uses control: test negative upon admission. Advised that abx can cause efficacy issues with OCP and she should use back up control if sexually active. (5) DVT prophylaxis: Ambulation and SCDs Total Time Total Time Spent Total Time Spent (In Minutes): 35 Total Time Includes: Examination of the Patient, Discharge Planning and Medication Reconciliation Discharge Plan Discharge Items Patient Disposition: Home - Self-Care Reason For Visit: PYELONEPHRITIS Discharge Diagnosis: Pyelonephritis and small renal abscess Condition on Discharge: Good Activity: Resume your previous activity Non-emergency contact: Primary Care Provider Call non-emergency contact if: your pain is worsening and your temperature is above 101 Follow-up/Referrals: [place] [Primary Care Provider] - (Please call them tomorrow to arrange a follow up next week. This can be in person or on the phone at your and their preference.) Diet: Regular Addtl Attending Provider Instructions: Ms. Horne, You were admitted to the hospital with a UTI that had caused a small abscess (pocket of infection) in the kidney. We started you on IV antibiotics, and you have done very well after that. You had a small fever yesterday, but none so far today. We are sending you home on an additional 2 weeks of antibiotics. These must be taken two times per day until they are all gone. Your next dose will be tomorrow morning (03/13/2020). Please see your PCP with [facility] in the next week. Call them or go to the hospital with further fevers, chills, nausea, or other concerning symptoms. Pending Studies at Discharge: No Stand-Alone Forms: [employer], Smoking Cessation Medications and DC Order Prescriptions: New ciprofloxacin HCl 500 mg tablet 500 mg PO BID Qty: 28 RF: 0 Continued bupropion HCl 150 mg tablet sustained-release 12 hr 150 mg PO QAM RF: 0 venlafaxine 37.5 mg capsule,extended release 24hr 37.5 mg PO QAM RF: 0 norethindrone-e.estradiol-iron [11/07 (28)] 1 mg-20 mcg (21)/75 mg (7) tablet 1 tab PO QAM RF: 0 Discharge Orders: Discharge Order (Routine); Ordered 03/12/20 Ordered By: Prince Stone Admission Data Admit Date/Time: 03/10/20 17:37 Attending Provider: Prince Stone Admit Provider: Mandy Baird Primary Care Provider: [facility] Other Providers: Chito Mckeon ; Prince Stone Other Interventions: Discharge Summary Assessment (RN) Last Done: 03/12/20 17:30 Coding Level of Care Code D/C Day Management >30 mins Diagnoses Acute pyelonephritis N10 Anxiety F41.9 Depression F32.9 Uses control Z78.9 DVT prophylaxis Z29.9
--- NOTE | 2020-03-13 15:26 | Electrocardiogram Report ---
Test Reason : Blood Pressure : / mmHG Vent. Rate : 085 BPM Atrial Rate : 085 BPM P-R Int : 142 ms QRS Dur : 084 ms QT Int : 362 ms P-R-T Axes : 042 037 -04 degrees QTc Int : 430 ms Normal sinus rhythm Nonspecific T wave abnormality Abnormal ECG No previous ECGs available Confirmed by Darrin Vasquez ([id number]) on 03/13/2020 3:26:04 PM Referred By: REFERRED SELF Confirmed By:Darrin Vasquez
== END 2020-03-12 19:36 | disposition home or self-care (01) | DRG 690 ==
LOC: ED 13:53 → SUATTDRO 17:37 → 2N 17:37